=== PATIENT | male | born 1965 | race Caucasian/White ===

== ENCOUNTER 2021-03-31 18:15 | Emergency (ER) | payer OTHER ==
[2021-03-31] MEDS ORDERED: CEPHALEXIN500 MG PO (19:23)
[2021-03-31] MEDS ORDERED: ASPIRIN CHEWABL81 MG PO (19:23)
[2021-03-31] MEDS ORDERED: ZOFRAN ODT 4 MG4 MG PO (19:23)
[2021-03-31] MEDS ORDERED: BACTRIM DS TAB1 EACH PO (19:26)
== END 2021-03-31 19:49 | disposition home or self-care (01) ==
LOC: ER1 18:15
DX: I96 Gangrene, not elsewhere classified (principal); Z88.0 Allergy status to penicillin; Z88.6 Allergy status to analgesic agent
CPT/HCPCS: 99283

== ENCOUNTER → 2021-05-14 | Day surgery (SDC) | payer OTHER ==
[~2021-05-14] MED LIST: ASPIRIN CHEWABL81 MG PO; BACTRIM DS TAB1 EACH PO; BUPRENORPHIN-N1 EACH SL; CATAPRES 0.1MG0.1 MG PO; CEPHALEXIN500 MG PO; GABAPENTIN800 MG PO; HYDROCODON-ACE1 EAC4 PO; KEPPRA 500 MG500 MG PO; ZOFRAN ODT 4 MG4 MG PO
== END | disposition home or self-care (01) ==
LOC: OR 06:35
DX: I96 Gangrene, not elsewhere classified (principal); I10 Essential (primary) hypertension; J44.9 Chronic obstructive pulmonary disease, unspecified; G40.909 Epilepsy, unspecified, not intractable, without status epilepticus; F17.210 Nicotine dependence, cigarettes, uncomplicated; Z88.0 Allergy status to penicillin; Z88.6 Allergy status to analgesic agent; Z79.82 Long term (current) use of aspirin; Z79.899 Other long term (current) drug therapy; Z20.822 Contact with and (suspected) exposure to COVID-19
CPT/HCPCS: 71045; 93005; J0690; J1100; J1885; J2001; J2405; J2704; J7120; U0002